=== PATIENT | male | born 1960 | race Caucasian/White ===

== ENCOUNTER 2018-02-03 11:35 | Inpatient (IN) | payer SELFPAY ==
[~2018-02-03] VITALS: Ht 190.5 cm; Wt 133.9 kg
[2018-02-03] VITALS (7 sets, daily range): BP systolic 110–157; BP diastolic 81–98
[~2018-02-03 11:35] MED LIST: NOHOMEMEDS
[2018-02-03 12:10] LABS: HEMATOCRIT 46.6 % (38.0-50.0); HEMOGLOBIN 16.2 G/DL (12.5-16.6); MCH 31.7 PG (29.0-34.0); MCHC 34.8 G/DL (30.0-36.0); MCV 91.2 FL (86-99); PLATELET COUNT 199 K/uL (156-360); RBC DIS.WIDTH-CV 11.9 % (11.8-14.6); RBC DIS.WIDTH-SD 39.8 % (39-53); RED BLOOD COUNT 5.11 M/uL (4.00-5.50); WHITE BLOOD COUNT 11.5 K/uL (4.1-10.2)
[2018-02-03 12:16] LABS: INTER. NORMALIZED RATIO 1.1
[2018-02-03 12:18] LABS: PTT 26.6 SEC (25-37)
[2018-02-03 12:20] LABS: CHLORIDE 103 mEq/L (99-109); POTASSIUM 4.1 mEq/L (3.7-5.4); SODIUM 138 mEq/L (136-147)
[2018-02-03 12:21] LABS: GLUCOSE 175 mg/dL (70-99)
[2018-02-03 12:25] LABS: CREATININE 1.3 mg/dL (0.6-1.3); GFR ESTIMATE (CALCULATED) > 59 mL/min/ (58.99-99999)
[2018-02-03 12:26] LABS: UREA NITROGEN (BUN) 18 mg/dL (9-23)
[2018-02-03 12:32] LABS: TROP-I INTERPRETATION NEGATIVE; TROPONIN-I 0.02 ng/mL (0.0-0.30)
[2018-02-03] MEDS ORDERED: DILTIAZEM 24HR240 MG PO (16:03)
[2018-02-03] MEDS ORDERED: LOPRESSOR100 M1 PO (16:04)
[2018-02-03] MEDS ORDERED: LOPRESSOR50 MG PO (16:04)
[2018-02-03] MEDS ORDERED: DIGOX250 MCG PO (16:05)
[2018-02-03] MEDS ORDERED: COUMADIN5 MG PO (16:05)
[2018-02-03] MEDS ORDERED: COUMADIN1 MG PO (16:06)
[2018-02-03] MEDS ORDERED: LISINOPRIL20 MG PO (16:06)
[2018-02-03 17:41] LABS: CHLORIDE 104 mEq/L (99-109); POTASSIUM 4.2 mEq/L (3.7-5.4); SODIUM 138 mEq/L (136-147)
[2018-02-03 17:43] LABS: GLUCOSE 210 mg/dL (70-99)
[2018-02-03 17:46] LABS: CREATININE 1.3 mg/dL (0.6-1.3); GFR ESTIMATE (CALCULATED) > 59 mL/min/ (58.99-99999)
[2018-02-03 17:47] LABS: UREA NITROGEN (BUN) 17 mg/dL (9-23)
[2018-02-04] VITALS (27 sets, daily range): BP systolic 105–152; BP diastolic 61–115
[2018-02-04 06:29] LABS: BASOPHIL (%) 0.1 % (0-1); EOSINOPHIL (%) 0 % (0-5); HEMATOCRIT 45.6 % (38.0-50.0); HEMOGLOBIN 15.3 G/DL (12.5-16.6); IMMATURE GRANULOCYTE (%) 0.5 % (0.0-0.7); LYMPHOCYTE (%) 11.1 % (15-42); LYMPHOCYTE COUNT 1.2 K/uL (1.0-2.8); MCH 31.2 PG (29.0-34.0); MCHC 33.6 G/DL (30.0-36.0); MCV 92.9 FL (86-99); MONOCYTE (%) 2.3 % (3-12); MONOCYTE COUNT 0.3 K/uL (0-0.8); NEUTROPHIL COUNT 9.2 K/uL (1.8-6.4); PLATELET COUNT 205 K/uL (156-360); RBC DIS.WIDTH-CV 12.1 % (11.8-14.6); RBC DIS.WIDTH-SD 41.1 % (39-53); RED BLOOD COUNT 4.91 M/uL (4.00-5.50); WHITE BLOOD COUNT 10.7 K/uL (4.1-10.2)
[2018-02-04 06:47] LABS: MAGNESIUM 2.4 mg/dl (1.3-2.7); PHOSPHORUS 3.7 mg/dL (2.5-4.9)
[2018-02-04 10:01] LABS: HEMOGLOBIN A1c (GLYCOHEMOGLOB) 7.5 % (Below 5.7)
[2018-02-04 20:19] LABS: TROP-I INTERPRETATION NEGATIVE; TROPONIN-I 0.01 ng/mL (0.0-0.30)
[2018-02-05] VITALS (15 sets, daily range): BP systolic 125–151; BP diastolic 77–109
[2018-02-05 03:02] LABS: INTER. NORMALIZED RATIO 1.1
[2018-02-05 03:11] LABS: CHLORIDE 107 mEq/L (99-109); POTASSIUM 4.7 mEq/L (3.7-5.4); SODIUM 138 mEq/L (136-147)
[2018-02-05 03:13] LABS: GLUCOSE 181 mg/dL (70-99)
[2018-02-05 03:16] LABS: CREATININE 1.4 mg/dL (0.6-1.3); GFR ESTIMATE (CALCULATED) 56 mL/min/ (58.99-99999)
[2018-02-05 03:23] LABS: UREA NITROGEN (BUN) 33 mg/dL (9-23)
[2018-02-05 09:03] LABS: BASOPHIL (%) 0.3 % (0-1); EOSINOPHIL (%) 0.2 % (0-5); HEMATOCRIT 47.3 % (38.0-50.0); HEMOGLOBIN 15.3 G/DL (12.5-16.6); IMMATURE GRANULOCYTE (%) 0.3 % (0.0-0.7); LYMPHOCYTE (%) 19.4 % (15-42); LYMPHOCYTE COUNT 2.2 K/uL (1.0-2.8); MCH 30.5 PG (29.0-34.0); MCHC 32.3 G/DL (30.0-36.0); MCV 94.4 FL (86-99); MONOCYTE (%) 5.4 % (3-12); MONOCYTE COUNT 0.6 K/uL (0-0.8); NEUTROPHIL (%) 74.4 % (45-76); NEUTROPHIL COUNT 8.5 K/uL (1.8-6.4); PLATELET COUNT 204 K/uL (156-360); RBC DIS.WIDTH-CV 12.5 % (11.8-14.6); RBC DIS.WIDTH-SD 42.8 % (39-53); RED BLOOD COUNT 5.01 M/uL (4.00-5.50); WHITE BLOOD COUNT 11.5 K/uL (4.1-10.2)
[2018-02-06] VITALS (7 sets, daily range): BP systolic 119–150; BP diastolic 74–98
[2018-02-06 06:43] LABS: HEMATOCRIT 44.1 % (38.0-50.0); HEMOGLOBIN 14.2 G/DL (12.5-16.6); MCH 30.4 PG (29.0-34.0); MCHC 32.2 G/DL (30.0-36.0); MCV 94.4 FL (86-99); PLATELET COUNT 197 K/uL (156-360); RBC DIS.WIDTH-CV 12.4 % (11.8-14.6); RBC DIS.WIDTH-SD 42.6 % (39-53); RED BLOOD COUNT 4.67 M/uL (4.00-5.50); WHITE BLOOD COUNT 7.8 K/uL (4.1-10.2)
[2018-02-06 06:52] LABS: INTER. NORMALIZED RATIO 1.2
[2018-02-06 06:55] LABS: PTT 83.2 SEC (25-37)
[2018-02-06 08:22] LABS: CHLORIDE 104 MEQ/L (99-109); CREATININE 1.4 MG/DL (0.6-1.3); GFR ESTIMATE (CALCULATED) 56 mL/min/ (58.99-99999); GLUCOSE 140 mg/dL (70-99); POTASSIUM 4.4 MEQ/L (3.7-5.4); SODIUM 139 MEQ/L (136-147); UREA NITROGEN (BUN) 27 mg/dL (9-23)
[2018-02-07] VITALS (7 sets, daily range): BP systolic 125–178; BP diastolic 69–97
[2018-02-07 05:36] LABS: BASOPHIL (%) 0.4 % (0-1); EOSINOPHIL (%) 0.7 % (0-5); EOSINOPHIL COUNT 0.1 K/uL (0-0.3); HEMATOCRIT 43.1 % (38.0-50.0); HEMOGLOBIN 14.1 G/DL (12.5-16.6); IMMATURE GRANULOCYTE (%) 0.7 % (0.0-0.7); LYMPHOCYTE (%) 29.7 % (15-42); LYMPHOCYTE COUNT 2.2 K/uL (1.0-2.8); MCH 30.5 PG (29.0-34.0); MCHC 32.7 G/DL (30.0-36.0); MCV 93.1 FL (86-99); MONOCYTE (%) 6.9 % (3-12); MONOCYTE COUNT 0.5 K/uL (0-0.8); NEUTROPHIL (%) 61.6 % (45-76); NEUTROPHIL COUNT 4.7 K/uL (1.8-6.4); PLATELET COUNT 199 K/uL (156-360); RBC DIS.WIDTH-CV 12.1 % (11.8-14.6); RBC DIS.WIDTH-SD 41.6 % (39-53); RED BLOOD COUNT 4.63 M/uL (4.00-5.50); WHITE BLOOD COUNT 7.6 K/uL (4.1-10.2)
[2018-02-07 05:45] LABS: INTER. NORMALIZED RATIO 1.3
[2018-02-07 05:48] LABS: PTT 87.8 SEC (25-37)
[2018-02-07 06:01] LABS: CHLORIDE 103 MEQ/L (99-109); CREATININE 1.3 MG/DL (0.6-1.3); GFR ESTIMATE (CALCULATED) > 59 mL/min/ (58.99-99999); GLUCOSE 135 mg/dL (70-99); SODIUM 137 MEQ/L (136-147); UREA NITROGEN (BUN) 22 mg/dL (9-23)
[2018-02-08] VITALS (8 sets, daily range): BP systolic 124–145; BP diastolic 68–98
[2018-02-08 06:17] LABS: HEMATOCRIT 44.7 % (38.0-50.0); HEMOGLOBIN 14.9 G/DL (12.5-16.6); MCH 30.4 PG (29.0-34.0); MCHC 33.3 G/DL (30.0-36.0); MCV 91.2 FL (86-99); PLATELET COUNT 205 K/uL (156-360); RBC DIS.WIDTH-CV 12.2 % (11.8-14.6); RBC DIS.WIDTH-SD 40.7 % (39-53); WHITE BLOOD COUNT 6.4 K/uL (4.1-10.2)
[2018-02-08 06:23] LABS: INTER. NORMALIZED RATIO 1.4
[2018-02-08 06:26] LABS: PTT 85.9 SEC (25-37)
[2018-02-09 03:30] VITALS: BP 115/75
[2018-02-09 06:49] LABS: INTER. NORMALIZED RATIO 1.5
[2018-02-09 06:52] LABS: PTT 86.7 SEC (25-37)
[2018-02-09 07:16] VITALS: BP 149/93
[2018-02-09 11:05] VITALS: BP 140/77
[2018-02-09 15:50] VITALS: BP 154/89
[2018-02-09 19:10] VITALS: BP 162/78
[2018-02-09 23:15] VITALS: BP 109/74
[2018-02-10 03:50] VITALS: BP 127/80
[2018-02-10 06:24] LABS: INTER. NORMALIZED RATIO 1.6
[2018-02-10 07:31] VITALS: BP 125/93
[2018-02-10 11:14] VITALS: BP 121/81
[2018-02-10 12:21] LABS: STOOL OCCULT BLD 1ST SPECIMEN NEGATIVE
[2018-02-10 16:22] VITALS: BP 120/93
[2018-02-10 19:56] VITALS: BP 156/85
[2018-02-11] VITALS (7 sets, daily range): BP systolic 91–139; BP diastolic 47–88
[2018-02-11 06:31] LABS: HEMATOCRIT 46.2 % (38.0-50.0); HEMOGLOBIN 15.2 G/DL (12.5-16.6); MCH 30.8 PG (29.0-34.0); MCHC 32.9 G/DL (30.0-36.0); MCV 93.7 FL (86-99); PLATELET COUNT 193 K/uL (156-360); RBC DIS.WIDTH-CV 12.5 % (11.8-14.6); RBC DIS.WIDTH-SD 43.1 % (39-53); RED BLOOD COUNT 4.93 M/uL (4.00-5.50); WHITE BLOOD COUNT 5.9 K/uL (4.1-10.2)
[2018-02-11 06:49] LABS: INTER. NORMALIZED RATIO 1.9
[2018-02-12 03:24] VITALS: BP 124/75
[2018-02-12 06:42] LABS: INTER. NORMALIZED RATIO 1.9
[2018-02-12 07:06] LABS: PTT 121.7 SEC (25-37)
[2018-02-12 07:50] VITALS: BP 132/75
[2018-02-12 12:03] VITALS: BP 119/84
[2018-02-12 13:51] LABS: PTT 74.2 SEC (25-37)
[2018-02-12 15:47] LABS: INTER. NORMALIZED RATIO 2.1
[2018-02-12 15:56] VITALS: BP 139/96
[2018-02-12] MEDS ORDERED: LOPRESSOR50 MG PO (18:02)
[2018-02-12] MEDS ORDERED: COUMADIN6 MG PO (18:05)
== END 2018-02-12 19:31 | disposition home or self-care (01) | DRG 176 ==
LOC: EME 11:35 → EDOF 16:55 → 4WEST 16:55 → ENRESERV 16:56 → 4WEST 18:13 → ENRESERV 02-05 17:25 → 2EASTP 02-05 19:20 → 2EAST 02-10 05:27
PROVIDERS: Emergency Medicine; Internal Medicine; Internal Medicine Critical Care Medicine; Nurse Practitioner Acute Care; Specialist; Student in an Organized Health Care Education/Training Program
DX: I26.99 Other pulmonary embolism without acute cor pulmonale (principal); I27.20 Pulmonary hypertension, unspecified; R09.02 Hypoxemia; I48.0 Paroxysmal atrial fibrillation; I36.1 Nonrheumatic tricuspid (valve) insufficiency; I37.1 Nonrheumatic pulmonary valve insufficiency; E66.01 Morbid (severe) obesity due to excess calories; G47.33 Obstructive sleep apnea (adult) (pediatric); I10 Essential (primary) hypertension; Z68.37 Body mass index [BMI] 37.0-37.9, adult; Z79.01 Long term (current) use of anticoagulants; Z91.14 Patient's other noncompliance with medication regimen; Z87.891 Personal history of nicotine dependence; T45.516A Underdosing of anticoagulants, initial encounter; Z91.120 Patient's intentional underdosing of medication regimen due to financial hardship; Z91.19 Patient's noncompliance with other medical treatment and regimen
CPT/HCPCS: 71046; 71275; 80048; 80048 91; 82272; 83036; 83735; 83880; 84100; 84484; 85025; 85027; 85379; 85610; 85730; 87070; 87205; 87502; 87641; 90686; 93005; 93306; 93308; 93321; 93325; 94640; 94799; 99281; 99285; C9113; J0295; J0456; J2930; J7050